=== PATIENT | male | born 1945 | race Two or more races ===

== ENCOUNTER 2020-07-24 14:51 | Inpatient (IN) | payer OTHER ==
[2020-07-24 16:45] LABS: BASO % 0.7 % (0-2.0); HEMATOCRIT 42.7 % (35.4-49); HEMOGLOBIN 14.2 GM/dL (11.7-16.9); LYMPH % 31.8 % (8-40); MCH 31.3 pg (25.7-33.7); MCHC 33.1 g/dl (32.0-35.9); MEAN CELL VOLUME 94.4 fl (80-96); MEAN PLT VOLUME 9.4 fl (7.5-11.1); MONO % 9.6 % (3.8-10.2); NEUT % 56.9 % (42.8-82.8); PLATELET COUNT 161 K/MM3 (134-434); RBC 4.53 M/mm3 (4.00-5.60); RDW 12.7 % (11.9-15.9)
[2020-07-24 16:52] LABS: INR 1.05 (0.83-1.09); PROTHROMBIN TIME (PATIENT) 12.9 SEC (9.7-13.0)
[2020-07-24 17:06] LABS: CHLORIDE 107 mmol/L (98-107); POTASSIUM 4.1 mmol/L (3.5-5.1); SODIUM 141 mmol/L (136-145)
[2020-07-24 17:08] LABS: CALCIUM 9.2 mg/dL (8.5-10.1); GLUCOSE,RANDOM 106 mg/dL (74-106)
[2020-07-24 17:09] LABS: ALBUMIN 3.8 g/dl (3.4-5.0); ANION GAP 6 MMOL/L (8-16); BLOOD UREA NITROGEN 12.6 mg/dL (7-18); CO2 28 mmol/L (21-32)
[2020-07-24 17:12] LABS: CREATININE 0.7 mg/dL (0.55-1.3); SGOT/AST 19 U/L (15-37); SGPT/ALT 22 U/L (13-61)
[2020-07-24 17:13] LABS: BILIRUBIN,TOTAL 0.5 mg/dL (0.2-1); TOT PROT 6.7 g/dl (6.4-8.2)
[2020-07-24 17:14] LABS: ALK PHOS 63 U/L (45-117)
[2020-07-24 19:15] LABS: PH,URINE 5.5 (5.0-8.0); URINE APPEARANCE CLEAR; URINE BILIRUBIN NEGATIVE (NEGATIVE); URINE COLOR YELLOW; URINE GLUCOSE (UA) NEGATIVE (NEGATIVE); URINE KETONE 1+ (NEGATIVE); URINE LEUK ESTERASE NEGATIVE (NEGATIVE); URINE NITRITE NEGATIVE (NEGATIVE); URINE PROTEIN NEGATIVE (NEGATIVE)
[2020-07-24] MEDS ORDERED: clonazePAM 0.5 MG TABLET PO ONE (19:25)
[2020-07-24] MEDS ORDERED: clonazePAM 0.5 MG TABLET ONE (19:33)
[2020-07-25] MEDS ORDERED: ACETAMINOPHEN 325 MG TABLET (FP) ONE (00:46)
[2020-07-25] MEDS ORDERED: ACETAMINOPHEN 325 MG TABLET (FP) PO ONE (00:46)
[2020-07-25 17:26] LABS: BASO % 0.8 % (0-2.0); EOS % 1.7 % (0-4.5); HEMATOCRIT 43.1 % (35.4-49); HEMOGLOBIN 14.4 GM/dL (11.7-16.9); LYMPH % 32.7 % (8-40); MCH 31.4 pg (25.7-33.7); MCHC 33.5 g/dl (32.0-35.9); MEAN CELL VOLUME 93.9 fl (80-96); MEAN PLT VOLUME 9.2 fl (7.5-11.1); NEUT % 52.8 % (42.8-82.8); PLATELET COUNT 157 K/MM3 (134-434); RBC 4.59 M/mm3 (4.00-5.60); WHITE BLOOD COUNT 6.6 K/mm3 (4.0-10.0)
[2020-07-25] MEDS ORDERED: ASPIRIN 81 MG CHEWABLE TABLETS ONE (17:44)
[2020-07-25] MEDS: ASPIRIN 81 MG CHEWABLE TABLETS PO SCH (17:49)
[2020-07-25 17:50] LABS: CHLORIDE 108 mmol/L (98-107); SODIUM 141 mmol/L (136-145)
[2020-07-25 17:52] LABS: ALBUMIN 3.4 g/dl (3.4-5.0); ANION GAP 8 MMOL/L (8-16); CALCIUM 8.5 mg/dL (8.5-10.1); CO2 25 mmol/L (21-32)
[2020-07-25 17:53] LABS: GLUCOSE,RANDOM 134 mg/dL (74-106)
[2020-07-25 17:55] LABS: SGOT/AST 26 U/L (15-37); SGPT/ALT 23 U/L (13-61)
[2020-07-25 17:56] LABS: CREATININE 0.5 mg/dL (0.55-1.3)
[2020-07-25 17:57] LABS: BILIRUBIN,TOTAL 0.6 mg/dL (0.2-1); TOT PROT 6.4 g/dl (6.4-8.2)
[2020-07-25 17:58] LABS: ALK PHOS 61 U/L (45-117)
[2020-07-25] MEDS ORDERED: CLOPIDOGREL BISULFATE 300 MG TABLET PO ONE (18:22)
[2020-07-25] MEDS ORDERED: CLOPIDOGREL BISULFATE 300 MG TABLET ONE (19:00)
[2020-07-25 20:41] VITALS: BMI 31.2
[2020-07-25] MEDS ORDERED: PT OWN MED DRAWER 7, Y5N ONE ×2 (21:43→23:21)
[2020-07-25] MEDS ORDERED: ATORVASTATIN CA 10 MG TABLET (FP) PO SCH (22:00)
[2020-07-25] MEDS: PRAMIPEXOLE DIHYDROCHLORIDE 0.25 MG TABLET PO SCH (23:07)
[2020-07-25] MEDS: BENZTROPINE MESYLATE 1 MG TABLET PO SCH (23:07)
[2020-07-26 07:10] LABS: HEMATOCRIT 39.6 % (35.4-49); MCH 30.8 pg (25.7-33.7); MCHC 32.9 g/dl (32.0-35.9); MEAN CELL VOLUME 93.5 fl (80-96); MEAN PLT VOLUME 9.5 fl (7.5-11.1); PLATELET COUNT 160 K/MM3 (134-434); RBC 4.24 M/mm3 (4.00-5.60); WHITE BLOOD COUNT 6.4 K/mm3 (4.0-10.0)
[2020-07-26 07:23] LABS: POTASSIUM 3.7 mmol/L (3.5-5.1)
[2020-07-26 07:31] LABS: BLOOD UREA NITROGEN 13.6 mg/dL (7-18); CALCIUM 8.2 mg/dL (8.5-10.1); MAGNESIUM 2.1 mg/dL (1.8-2.4)
[2020-07-26 07:34] LABS: CREATININE 0.5 mg/dL (0.55-1.3)
[2020-07-26] MEDS ORDERED: PT OWN MED DRAWER 7, Y5N ONE ×2 (09:14→10:42)
[2020-07-26] MEDS: BENZTROPINE MESYLATE 1 MG TABLET PO SCH (09:35)
[2020-07-26] MEDS: ASPIRIN 81 MG CHEWABLE TABLETS PO SCH (09:35)
[2020-07-26] MEDS: PRAMIPEXOLE DIHYDROCHLORIDE 0.25 MG TABLET PO SCH (09:36)
[2020-07-26] MEDS ORDERED: amLODIPine BESYLATE 10 MG TABLET (FP) PO SCH (10:00)
[2020-07-26] MEDS ORDERED: ENOXAPARIN NA (PORCINE) 40 MG/0.4 ML DISP.SYRIN SQ SCH (10:00)
[2020-07-26] MEDS ORDERED: CLOPIDOGREL BISULFATE 75 MG TABLET (FP) PO SCH (10:00)
[2020-07-26] MEDS ORDERED: METHIMAZOLE 5 MG TABLET (FP) PO SCH (10:00)
[2020-07-26] MEDS ORDERED: risperiDONE 2 MG TABLET PO SCH (10:00)
[2020-07-26] MEDS ORDERED: RANOLAZINE E.R. 500 MG TABLET (FP) PO SCH (11:45)
[2020-07-26 13:57] VITALS: BP 134/69; PULSE 76; TEMP 98.5
[2020-07-27] MEDS ORDERED: VALSARTAN 40 MG TABLET PO SCH (10:00)
[2020-07-27] MEDS ORDERED: amLODIPine BESYLATE 10 MG TABLET (FP) PO SCH (10:00)
== END 2020-07-26 16:59 | disposition short-term general hospital (02) | DRG 303 ==
LOC: JER 14:51 → JERBED 07-25 16:35 → J4S 07-25 20:18
DX: I25.119 Atherosclerotic heart disease of native coronary artery with unspecified angina pectoris (principal); I10 Essential (primary) hypertension; E78.5 Hyperlipidemia, unspecified; E11.9 Type 2 diabetes mellitus without complications; E05.90 Thyrotoxicosis, unspecified without thyrotoxic crisis or storm; F20.9 Schizophrenia, unspecified; I45.10 Unspecified right bundle-branch block; R94.39 Abnormal result of other cardiovascular function study; J44.9 Chronic obstructive pulmonary disease, unspecified; F41.9 Anxiety disorder, unspecified; F03.90 Unspecified dementia, unspecified severity, without behavioral disturbance, psychotic disturbance, mood disturbance, and anxiety; F39 Unspecified mood [affective] disorder; E66.9 Obesity, unspecified; Z68.31 Body mass index [BMI] 31.0-31.9, adult
CPT/HCPCS: 36415; 70450-TC; 71045-TC-FY; 80048; 80053; 81003; 82550; 82553; 83735; 84100; 84484; 85025; 85027; 85610; 85730; 86850; 86900; 86901; 87086; 93005; 93010; 99285-25; C9803; U0003